=== PATIENT | male | born 1980 | race Caucasian/White ===

== ENCOUNTER 2025-07-29 09:51 | Emergency (ER) | payer OTHER ==
[~2025-07-29] VITALS: Ht 157.5 cm; Wt 74.5 kg
[2025-07-29 10:40] VITALS: TEMP 98.2
[2025-07-29 11:27] LABS: PLATELET COUNT (AUTO) 248 K/uL (150-450); RED BLOOD CELL COUNT(AUTO) 5.22 MIL/uL (4.50-5.90); RED CELL DISTRIBUTION WIDTH 14.3 % (11.5-14.5); WHITE BLOOD COUNT (AUTO) 5.8 K/uL (4.5-11.0)
[2025-07-29 11:28] LABS: CALCIUM, TOTAL 9.5 mg/dL (8.8-10.5); CREATININE 0.87 mg/dL (0.60-1.30); GLOMERULAR FILTR. RATE CALC > 60 mL/min (>60); GLUCOSE,RANDOM 109 mg/dL (70-110); SODIUM SERUM 136 mmol/L (136-145); UREA NITROGEN, BLOOD 20 mg/dL (7-18)
[2025-07-29 12:51] VITALS: BP 120/78; PULSE 69; RESP 18; O2SAT 98
== END 2025-07-29 13:06 | disposition home or self-care (01) ==
LOC: EMS 09:51
DX: R10.9 Unspecified abdominal pain (principal); T18.9XXA Foreign body of alimentary tract, part unspecified, initial encounter; Z65.3 Problems related to other legal circumstances; Z90.49 Acquired absence of other specified parts of digestive tract; W44.9XXA Unspecified foreign body entering into or through a natural orifice, initial encounter
CPT/HCPCS: 74176; 80048; 85025; 99284